=== PATIENT | female | born 1985 | race American Indian/Alaskan Native ===

== ENCOUNTER 2017-02-19 06:05 | Emergency (ER) | payer BC ==
[2017-02-19 06:39] LABS: Bilirubin,Urine NEG (Negative); Blood,Urine LG (Negative); Ketones,Urine NEG (Negative); Leukocyte Esterase,Urine TR (Negative); Mucus,Urine 2+ /HPF; Nitrite,Urine NEG (Negative); Protein,Urine <15 mg/dL mg/dL (Negative)
[2017-02-19 06:49] LABS: Basophils % (Auto) 0.6 % (0.0-1.8); Eosinophils % (Auto) 0.5 % (0.0-4.3); Hematocrit 38.1 % (30.3-42.9); Hemoglobin 12.7 gm/dl (10.1-14.3); Mean Corpuscular HGB Conc 33 % (30-34); Mean Corpuscular Hemoglobin 27 pg (28-32); Mean Corpuscular Volume 82 fl (79-97); Platelet Count 271 K/mm3 (140-440); Red Blood Count 4.68 M/mm3 (3.65-5.03); White Blood Count 11.8 K/mm3 (4.5-11.0)
[2017-02-19 07:10] LABS: Alanine Aminotransferase 15 units/L (7-56); Alkaline Phosphatase 80 units/L (35-129); Anion Gap 22 mmol/L; BUN/Creatinine Ratio 14.28; Blood Urea Nitrogen 10 mg/dL (7-17); Calcium 9.5 mg/dL (8.4-10.2); Carbon Dioxide 22 mmol/L (22-30); Chloride 98.5 mmol/L (98-107); Glucose 105 mg/dL (65-100); Lipase 20 units/L (13-60); Potassium 4.3 mmol/L (3.6-5.0); Sodium 138 mmol/L (137-145); Total Protein 7.9 g/dL (6.3-8.2)
[2017-02-19] MEDS ORDERED: MORPHINE IV ONE (16:06)
[2017-02-19] MEDS ORDERED: NACL 0.9% 1000 ML 1,000 ML IV ONE (16:06)
--- NOTE | 2017-02-19 16:11 | Emergency Department Report ---
ED Abdominal Pain HPI - General Chief Complaint: Abdominal Pain Stated Complaint: ABDOMINAL PAIN Time Seen by Provider: 02/19/17 15:51 Source: patient Mode of arrival: Wheelchair Limitations: No Limitations - History of Present Illness Initial Comments: 32-year-old female here with complaint of abdominal pain. Patient has a history of diverticulitis. Complains of pain in the center of her stomach and left upper quadrant. Describes it as sharp in nature. She had some nausea but no vomiting. Denies fevers chills. Denies any chance of . States she has not had a bowel movement for several days. MD Complaint: abdominal pain -: Sudden Location: LUQ, epigastric Radiation: none Migration to: no migration Severity: severe Quality: cramping, sharp Consistency: constant Improves With: nothing Worsens With: nothing Associated Symptoms: nausea, constipation. denies: vomiting, diarrhea - Related Data Previous Rx's Medication Instructions Recorded Last Taken Type HYDROcodone/APAP 5-325 [Cary 1 each PO Q6HR PRN #10 tablet 02/19/17 Unknown Rx 5-325 mg TAB] Levofloxacin [Levaquin TAB] 500 mg PO QDAY #10 tablet 02/19/17 Unknown Rx metroNIDAZOLE [Flagyl] 500 mg PO Q8HR #30 tablet 02/19/17 Unknown Rx Allergies Allergy/AdvReac Type Severity Reaction Status Date / Time povidone-iodine Allergy Unknown Verified 02/19/17 16:33 [From Betadine] shellfish derived Allergy Rash Verified 02/19/17 06:11 soap [From Betadine] Allergy Unknown Verified 02/19/17 16:33 ED Review of Systems ROS: Stated complaint: ABDOMINAL PAIN Other details as noted in HPI Comment: All other systems reviewed and negative Constitutional: denies: chills, fever Eyes: denies: eye pain, eye discharge, vision change ENT: denies: ear pain, throat pain Respiratory: denies: cough, shortness of breath, wheezing Cardiovascular: denies: chest pain, palpitations Endocrine: no symptoms reported Gastrointestinal: abdominal pain. denies: nausea, diarrhea Genitourinary: denies: urgency, dysuria, discharge Musculoskeletal: denies: back pain, joint swelling, arthralgia Skin: denies: rash, lesions Neurological: denies: headache, weakness, paresthesias Psychiatric: denies: anxiety, depression Hematological/Lymphatic: denies: easy bleeding, easy bruising ED Past Medical Hx - Past Medical History Previous Medical History?: Yes Additional medical history: Diverticulitis. obesity - Surgical History Past Surgical History?: Yes Hx Cholecystectomy: Yes - Family History Family history: no significant - Social History Smoking Status: Never Smoker Substance Use Type: None - Medications Home Medications: Home Medications Medication Instructions Recorded Confirmed Last Taken Type HYDROcodone/APAP 5-325 [[place] 1 each PO Q6HR PRN #10 tablet 02/19/17 Unknown Rx 5-325 mg TAB] Levofloxacin [Levaquin TAB] 500 mg PO QDAY #10 tablet 02/19/17 Unknown Rx metroNIDAZOLE [Flagyl] 500 mg PO Q8HR #30 tablet 02/19/17 Unknown Rx ED Physical Exam - General Limitations: No Limitations General appearance: alert, in no apparent distress - Head Head exam: Present: atraumatic, normocephalic - Eye Eye exam: Present: normal appearance, PERRL, EOMI. Absent: scleral icterus, conjunctival injection - ENT ENT exam: Present: mucous membranes moist - Neck Neck exam: Present: normal inspection - Respiratory Respiratory exam: Present: normal lung sounds bilaterally. Absent: respiratory distress, wheezes, rales, rhonchi - Cardiovascular Cardiovascular Exam: Present: regular rate, normal rhythm. Absent: systolic murmur, diastolic murmur, rubs, gallop - GI/Abdominal GI/Abdominal exam: Present: soft, distended, tenderness, normal bowel sounds. Absent: guarding, rebound - Extremities Exam Extremities exam: Present: normal inspection - Back Exam Back exam: Present: normal inspection - Neurological Exam Neurological exam: Present: alert, oriented X3 - Psychiatric Psychiatric exam: Present: normal affect, normal mood - Skin Skin exam: Present: warm, dry, intact, normal color. Absent: rash ED Course Vital Signs 02/19/17 02/19/17 02/19/17 06:10 16:04 16:12 Temperature 98.3 F 98.5 F Pulse Rate 104 H 75 Respiratory 22 18 18 Rate Blood Pressure 143/102 134/59 O2 Sat by Pulse 100 100 100 Oximetry ED Medical Decision Making - Lab Data Result diagrams: 02/19/17 06:12 02/19/17 06:12 Laboratory Results - last 24 hr 02/19/17 02/19/17 02/19/17 06:12 06:12 06:12 WBC 11.8 H RBC 4.68 Hgb 12.7 Hct 38.1 MCV 82 MCH 27 L MCHC 33 RDW 14.0 Plt Count 271 Lymph % (Auto) 27.5 [place] % (Auto) 7.9 H Eos % (Auto) 0.5 Baso % (Auto) 0.6 Lymph # 3.2 Sabine # 0.9 H Eos # 0.1 Baso # 0.1 Seg Neutrophils % 63.5 Seg Neutrophils # 7.5 Sodium 138 Potassium 4.3 Chloride 98.5 Carbon Dioxide 22 Anion Gap 22 BUN 10 Creatinine 0.7 Estimated GFR > 60 BUN/Creatinine Ratio 14.28 Glucose 105 H Calcium 9.5 Total Bilirubin 0.90 AST 21 ALT 15 Alkaline Phosphatase 80 Total Protein 7.9 Albumin 4.0 Albumin/Globulin Ratio 1.0 Lipase 20 HCG, Qual Negative Urine Color Urine Turbidity Urine pH Ur Specific [place] Urine Protein Urine Glucose (UA) Urine Ketones Urine Blood Urine Nitrite Urine Bilirubin Urine Urobilinogen Ur Leukocyte Esterase Urine WBC (Auto) Urine RBC (Auto) U Epithel Cells (Auto) Urine Mucus 02/19/17 06:29 WBC RBC Hgb Hct MCV MCH MCHC RDW Plt Count Lymph % (Auto) [place] % (Auto) Eos % (Auto) Baso % (Auto) Lymph # [place] # Eos # Baso # Seg Neutrophils % Seg Neutrophils # Sodium Potassium Chloride Carbon Dioxide Anion Gap BUN Creatinine Estimated GFR BUN/Creatinine Ratio Glucose Calcium Total Bilirubin AST ALT Alkaline Phosphatase Total Protein Albumin Albumin/Globulin Ratio Lipase HCG, Qual Urine Color Yellow Urine Turbidity Clear Urine pH 5.0 Ur Specific [place] 1.025 Urine Protein <15 mg/dl Urine Glucose (UA) Neg Urine Ketones Neg Urine Blood Lg Urine Nitrite Neg Urine Bilirubin Neg Urine Urobilinogen 2.0 Ur Leukocyte Esterase Tr Urine WBC (Auto) 4.0 Urine RBC (Auto) 5.0 U Epithel Cells (Auto) 4.0 Urine Mucus 2+ - Medical Decision Making 42-year-old female here with complaint of abdominal pain. Patient has a known history of diverticulitis and hasn't had a bowel movement for several days. She is tender epigastrium and left upper quadrant. Slight patient white blood count of 11.8. Plan CT patient and will reassess after CT scan. Plan to treat with IV fluids and IV morphine. Portions of this chart were dictated with dictation software. There may be dictation errors contained within this note. Critical care attestation.: If time is entered above; I have spent that time in minutes in the direct care of this critically ill patient, excluding procedure time. ED Disposition Clinical Impression: Diverticulitis, Ovarian cyst Disposition: TO HOME OR SELFCARE Is pt being admited?: Yes Condition: Stable Instructions: Abdominal Pain (ED), Ovarian Cyst (ED), Diverticulitis (ED) Additional Instructions: Please follow-up with your drug abuse resistance education officer as soon as possible for a pelvic ultrasound. You need to have your ovaries evaluated. Prescriptions: HYDROcodone/APAP 5-325 [Cary 5-325 mg TAB] 1 each PO Q6HR PRN #10 tablet PRN Reason: Pain Levofloxacin [Levaquin TAB] 500 mg PO QDAY #10 tablet metroNIDAZOLE [Flagyl] 500 mg PO Q8HR #30 tablet Referrals: PRIMARY CARE, [Primary Care Provider] - 3-5 Days
[2017-02-19 16:13] VITALS: BP 134/59
[2017-02-19] MEDS ORDERED: NACL ONE (16:43)
--- NOTE | 2017-02-19 17:43 | Cat Scan Report ---
FINAL REPORT PROCEDURE: CT ABDOMEN PELVIS W CON TECHNIQUE: Computerized axial tomography of the abdomen and pelvis was performed after the IV injection of iodinated nonionic contrast. HISTORY: Abdominal pain. Diverticulitis. DLP 342.10 mGy-cm. COMPARISON: No prior studies are available for comparison. FINDINGS: Visualized lower thorax: No significant abnormality. Liver: Normal size and attenuation. Spleen: 13 millimeter low-attenuation splenic lesion with peripheral nodular enhancement. This appears to partially fill-in on delayed images. Gallbladder and biliary system: Cholecystectomy. Pancreas: Normal. Adrenals: Normal. Kidneys: Normal. GI tract: Normal appendix not confidently seen. Small hiatal hernia. Stool throughout the colon. A few scattered colonic diverticula. There may be minimal stranding changes about a proximal sigmoid diverticulum. Lymph nodes and mesentery: Small mesenteric lymph nodes. Vasculature: Normal. Bladder: Normal. Reproductive organs: Fluid in the endometrial canal. Bilateral low-attenuation ovarian lesions, on the right have more of the appearance of follicles. On the left there is a dominant 4.7 x 3.5 centimeter low-attenuation lesion that is slightly thick-walled. Small linear/nodular subcentimeter areas of high attenuation in the utero cervical region/proximal vagina. In this region there is also a 1.6 6 centimeter area of low attenuation. Peritoneum: Trace amount of free pelvic fluid. Musculoskeletal structures: Small multilevel osteophytes. Other: Small fat filled umbilical hernia. IMPRESSION: Diverticulosis. Although could be volume averaging, subtle stranding changes about the proximal sigmoid diverticulum, cannot exclude subtle diverticulitis. Normal appendix not confidently seen. No obvious inflammatory stranding changes. Consider further evaluation including correlation with surgical history and examination with oral contrast if there is continued clinical concern for appendiceal pathology. Small hiatal hernia. Fluid in the endometrial canal, bilateral low-attenuation ovarian lesions, dominant slightly thick-walled left ovarian lesion. Consider could represent right follicles and complex cyst on the left. Small linear/nodular subcentimeter areas of high attenuation in the uterus cervical regions/proximal vagina. Etiology is uncertain, consider small areas of calcification (appearance does not change between venous and delayed images) or even small clot/hemorrhage. 1.6 centimeter area of low attenuation in this region, consider uterine fibroid or nabothian cysts. Trace pelvic fluid. Recommend pelvic ultrasound to begin further characterization. Low-attenuation splenic lesion with peripheral nodular enhancement which appears to partially fill in on delayed images, likely hemangioma. Small fat filled umbilical hernia. Other incidental findings as above.
[2017-02-19] MEDS ORDERED: LEVAQUIN PO ONE (18:06)
[2017-02-19] MEDS ORDERED: FLAGYL PO ONE (18:06)
== END 2017-02-19 18:45 | disposition home or self-care (01) ==
LOC: ED 06:05
DX: K57.92 Diverticulitis of intestine, part unspecified, without perforation or abscess without bleeding (principal); N83.209 Unspecified ovarian cyst, unspecified side
CPT/HCPCS: 36415; 74177; 80053; 81001; 83690; 84703; 85025; 96361; 96374; 99284; J2270; J7030; Q9967

== ENCOUNTER 2022-02-18 07:51 | Inpatient (IN) | payer BC ==
--- NOTE | 2022-02-18 08:07 | Event Note ---
Date: 02/18/22 Medical screening examination note: 37-year-old female brought to the hospital by emergency medical services with an EMS articulated complaint of nausea, and unsteady gait, patient woke up with symptoms at 8:00 AM yesterday. EMS reports unremarkable vital signs and unremarkable Accu-Chek. Patient anxious, having difficulty walking, and is nauseous and is crying. She is protecting her airway, breathing spontaneously, moving 4 extremities, vital signs unremarkable. Obtain appropriate laboratory studies, EKG, noncontrast CT scan of the brain, treat symptoms supportively and symptomatically, Detailed history and physical to be performed by myself or oncoming ER physician. Vital Signs 02/18/22 02/18/22 07:57 09:43 Temperature 98.0 F Pulse Rate 90 87 Respiratory 16 16 Rate Blood Pressure 130/101 Blood Pressure 128/88 133/107 [Left] O2 Sat by Pulse 97 100 Oximetry
--- NOTE | 2022-02-18 09:11 | Cat Scan Report ---
CT head/brain wo con INDICATION / CLINICAL INFORMATION: 37 years Female; Weakness. TECHNIQUE: Routine CT head without contrast. All CT scans at this location are performed using CT dos e reduction for ALARA by means of automated exposure control. COMPARISON: None. FINDINGS: BRAIN / INTRACRANIAL CONTENTS: No acute hemorrhage, mass effect, midline shift, hydrocephalus, or acu te, large territorial infarct. No signs of significant atrophy or chronic infarct. No significant whi te matter abnormality seen. CRANIOCERVICAL JUNCTION: No significant abnormality. ORBITS: No significant abnormality of visualized orbits. SINUSES / MASTOIDS: Mild mucosal thickening suggested in the mastoids and minimal in the ethmoids. ADDITIONAL FINDINGS: Fibrous union versus old fracture seen along the junction of the posterior arch of C1 on the right in the adjacent lateral mass. Flexion-extension views of the cervical spine may be helpful for further evaluation, if clinically warranted. IMPRESSION: 1. No focal mass, hemorrhage, hydrocephalus, or acute, large territorial infarct. Signer Name: Ariel Merino MD, III Signed: 02/18/2022 9:07 AM Workstation Name: [email or web address]
--- NOTE | 2022-02-18 09:44 | Emergency Department Report ---
ED General Adult HPI - General Chief complaint: Weakness Stated complaint: WEAKNESS Time Seen by Provider: 02/18/22 09:38 Source: patient, EMS (Verbal report received from emergency medical services. EMS documentation not available at time of chart dictation ), RN notes reviewed, old records reviewed Mode of arrival: Stretcher Limitations: Physical Limitation - History of Present Illness Initial comments: The patient was evaluated in the emergency department for symptoms described in the history of present illness. He/she was evaluated in the context of the global COVID-19 pandemic, which necessitated consideration that the patient might be at risk for infection with the virus that causes COVID-19. Institutional protocols and algorithms that pertain to the evaluation of patients at risk for COVID-19 are in a state of rapid change based on i nformation released by regulatory bodies including the CDC and federal and state organizations. These policies and algorithms were followed during the patient's care in the emergency department. Please note that these policies, procedures and recommendations changed on a rapid basis. Patient is a 37-year-old female who is morbidly obese with a history of prediabetes, who presents to the department today with a complaint of headache, unsteady gait, dizziness, and left upper extremity numbness. The left upper extremity numbness started yesterday, and is now resolved. Patient believes that she woke up yesterday at around 8:00 in the morning with the symptoms. No loss of vision, positive left-sided neck pain, no chest pain, no abdominal pain, no shortness of breath, positive nausea, no urinary symptoms. No tinnitus. No loss of hearing. Does report recent chiropractic manipulation, as well as massages. No loss of taste or smell. -: Sudden, days(s) Location: head Quality: aching Consistency: intermittent Improves with: rest Worsens with: movement - Related Data Previous Rx's Medication Instructions Recorded Last Taken Type HYDROcodone/APAP 5-325 [[place] 1 each PO Q6HR PRN #10 tablet 02/19/17 Unknown Rx 5-325 mg TAB] levoFLOXacin [Levaquin TAB] 500 mg PO QDAY #10 tablet 02/19/17 Unknown Rx metroNIDAZOLE [Flagyl] 500 mg PO Q8HR #30 tablet 02/19/17 Unknown Rx Allergies Allergy/AdvReac Type Severity Reaction Status Date / Time povidone-iodine Allergy Unknown Verified 02/18/22 11:15 [From Betadine] shellfish derived Allergy Rash Verified 02/18/22 11:15 soap [From Betadine] Allergy Unknown Verified 02/18/22 11:15 ED Review of Systems ROS: Stated complaint: WEAKNESS Other details as noted in HPI Constitutional: malaise, weakness. denies: fever Eyes: denies: eye discharge, vision change ENT: denies: throat pain Respiratory: denies: cough Cardiovascular: denies: chest pain Gastrointestinal: nausea, vomiting. denies: abdominal pain, diarrhea Genitourinary: denies: dysuria Musculoskeletal: arthralgia, myalgia Neurological: headache, numbness, abnormal gait, vertigo. denies: weakness, paresthesias, confusion Psychiatric: anxiety Hematological/Lymphatic: denies: easy bleeding ED Past Medical Hx - Past Medical History Previous Medical History?: Yes Hx Diabetes: Yes Additional medical history: Diverticulitis, migraine. obesity - Surgical History Hx Cholecystectomy: Yes - Social History Smoking Status: Never Smoker Substance Use Type: None - Medications Home Medications: Home Medications Medication Instructions Recorded Confirmed Last Taken Type HYDROcodone/APAP 5-325 [[place] 1 each PO Q6HR PRN #10 tablet 02/19/17 Unknown Rx 5-325 mg TAB] levoFLOXacin [Levaquin TAB] 500 mg PO QDAY #10 tablet 02/19/17 Unknown Rx metroNIDAZOLE [Flagyl] 500 mg PO Q8HR #30 tablet 02/19/17 Unknown Rx ED Physical Exam - General Limitations: Physical Limitation General appearance: alert, anxious, in distress, obese - Head Head exam: Present: atraumatic, normocephalic - Eye Eye exam: Present: normal appearance, PERRL, EOMI, other (Visual acuity is intact to finger counting and color perception at a close distance). Absent: nystagmus - ENT ENT exam: Present: normal exam, normal orophraynx, mucous membranes moist, normal external ear exam - Neck Neck exam: Present: normal inspection, full ROM. Absent: tenderness, meningismus - Respiratory Respiratory exam: Present: normal lung sounds bilaterally. Absent: respiratory distress, wheezes, rales, rhonchi, stridor, decreased breath sounds - Cardiovascular Cardiovascular Exam: Present: regular rate, normal rhythm, normal heart sounds. Absent: bradycardia, tachycardia, irregular rhythm, systolic murmur, diastolic murmur, rubs, gallop - GI/Abdominal GI/Abdominal exam: Present: soft. Absent: distended, tenderness, guarding, rebound, rigid, pulsatile mass - Extremities Exam Extremities exam: Present: normal inspection, full ROM, other (2+ pulses noted in the bilateral upper and lower extremities. There is no palpable cord. negative Homans sign. Muscular compartments are soft. The pelvis is stable.). Absent: pedal edema, calf tenderness - Back Exam Back exam: Present: normal inspection. Absent: tenderness, CVA tenderness (R), CVA tenderness (L), paraspinal tenderness, vertebral tenderness - Neurological Exam Neurological exam: Present: alert (There is no past-pointing. There is normal [id number]. There is no pronator drift.), oriented X3, other (There is no facial droop. The tongue is midline. EOMI. 5 out of 5 strength in 4 extremities. Sensation is intact to light touch in the bilateral upper and lower extremities. Sensation intact to light touch in V1, V2, V3 distribution bilaterally). Absent: motor sensory deficit - Psychiatric Psychiatric exam: Present: anxious - Skin Skin exam: Present: warm, dry, intact, normal color. Absent: rash ED Course Vital Signs 02/18/22 02/18/22 07:57 09:43 Temperature 98.0 F Pulse Rate 90 87 Respiratory 16 16 Rate Blood Pressure 130/101 Blood Pressure 128/88 133/107 [Left] O2 Sat by Pulse 97 100 Oximetry - Reevaluation(s) Reevaluation #1: 02/18/22 11:51 Differential diagnosis, including but not limited to: Migraine headache, tension headache, cluster headache, subacute stroke, peripheral vertigo, central vert igo Assessment and plan: 37-year-old female who woke up with symptoms yesterday morning, with a complaint of nausea, vomiting, unsteady gait, and left upper extremity numbness. She is clinically sober, currently with a GCS of 15. She is not a tPA candidate, because she woke up with symptoms yesterday, and is now 4.5 hours after her last known well time. I have not obtained an emergent neurologic consultation, because I do not have a clinical question for neurology that requires emergent answer. The patient is not a tPA candidate given the aforementioned facts. The patient is not an endov ascular candidate, given the aforementioned facts. Patient obviously requires an MRI, and further inpatient work-up. This is unlikely to be a large vessel occlusion. Given history of chiropractic manipulation, obtain CT angiogram head and neck. Laboratory studies thus far unremarkable. We will treat the patient supportively and symptomatically. Have recommended admission to the medical service. Patient is agreeable to admission hospitalization. Hospital physician, Dr. Campos, to assume care. 02/18/22 13:43 CT angiogram head and neck negative for acute findings 02/18/22 13:44 ED Medical Decision Making - Lab Data Result diagrams: 02/18/22 08:16 02/18/22 08:16 Vital Signs 02/18/22 02/18/22 07:57 09:43 Temperature 98.0 F Pulse Rate 90 87 Respiratory 16 16 Rate Blood Pressure 130/101 Blood Pressure 128/88 133/107 [Left] O2 Sat by Pulse 97 100 Oximetry Lab Results 02/18/22 02/18/22 02/18/22 Range/Units 08:16 08:16 08:16 WBC 9.2 (4.5-11.0) K/mm3 RBC 5.04 H (3.65-5.03) M/mm3 Hgb 13.2 (10.1-14.3) gm/dl Hct 41.9 (30.3-42.9) % MCV 83 (79-97) fl MCH 26 L (28-32) pg MCHC 32 (30-34) % RDW 14.4 (13.2-15.2) % Plt Count 383 (140-440) K/mm3 Lymph % (Auto) 17.9 (13.4-35.0) % Mcdonald % (Auto) 6.1 (0.0-7.3) % Eos % (Auto) 1.1 (0.0-4.3) % Baso % (Auto) 0.4 (0.0-1.8) % Lymph # (Auto) 1.6 (1.2-5.4) K/mm3 Mcdonald # (Auto) 0.6 (0.0-0.8) K/mm3 Eos # (Auto) 0.1 (0.0-0.4) K/mm3 Baso # (Auto) 0.0 (0.0-0.1) K/mm3 Seg Neutrophils % 74.5 H (40.0-70.0) % Seg Neutrophils # 6.9 (1.8-7.7) K/mm3 PT 13.4 (12.2-14.9) Sec. INR 0.92 (0.87-1.13) Sodium 139 (137-145) mmol/L Potassium 4.4 (3.6-5.0) mmol/L Chloride 104.3 (98-107) mmol/L Carbon Dioxide 25 (22-30) mmol/L Anion Gap 14 mmol/L BUN 11 (7-17) mg/dL Creatinine 0.9 (0.6-1.2) mg/dL Estimated GFR > 60 ml/min BUN/Creatinine Ratio 12 % Glucose 98 (65-100) mg/dL Calcium 10.1 (8.4-10.2) mg/dL Phosphorus (2.5-4.5) mg/dL Magnesium (1.7-2.3) mg/dL Total Bilirubin 0.70 (0.1-1.2) mg/dL AST 28 (5-40) units/L ALT 24 (7-56) units/L Alkaline Phosphatase 86 (35-129) units/L Total Creatine Kinase (30-135) units/L Troponin T < 0.010 (0.00-0.029) ng/mL Total Protein 7.6 (6.3-8.2) g/dL Albumin 4.7 (3.9-5) g/dL Albumin/Globulin Ratio 1.6 % TSH (0.270-4.200) mlU/mL HCG, Quant (0-4) mIU/mL Salicylates (2.8-20.0) mg/dL Acetaminophen (10.0-30.0) ug/mL Plasma/Serum Alcohol (0-0.07) % 02/18/22 02/18/22 02/18/22 Range/Units 08:16 08:16 08:16 WBC (4.5-11.0) K/mm3 RBC (3.65-5.03) M/mm3 Hgb (10.1-14.3) gm/dl Hct (30.3-42.9) % MCV (79-97) fl MCH (28-32) pg MCHC (30-34) % RDW (13.2-15.2) % Plt Count (140-440) K/mm3 Lymph % (Auto) (13.4-35.0) % Mcdonald % (Auto) (0.0-7.3) % Eos % (Auto) (0.0-4.3) % Baso % (Auto) (0.0-1.8) % Lymph # (Auto) (1.2-5.4) K/mm3 Mcdonald # (Auto) (0.0-0.8) K/mm3 Eos # (Auto) (0.0-0.4) K/mm3 Baso # (Auto) (0.0-0.1) K/mm3 Seg Neutrophils % (40.0-70.0) % Seg Neutrophils # (1.8-7.7) K/mm3 PT (12.2-14.9) Sec. INR (0.87-1.13) Sodium (137-145) mmol/L Potassium (3.6-5.0) mmol/L Chloride (98-107) mmol/L Carbon Dioxide (22-30) mmol/L Anion Gap mmol/L BUN (7-17) mg/dL Creatinine (0.6-1.2) mg/dL Estimated GFR ml/min BUN/Creatinine Ratio % Glucose (65-100) mg/dL Calcium (8.4-10.2) mg/dL Phosphorus 3.60 (2.5-4.5) mg/dL Magnesium 2.10 (1.7-2.3) mg/dL Total Bilirubin (0.1-1.2) mg/dL AST (5-40) units/L ALT (7-56) units/L Alkaline Phosphatase (35-129) units/L Total Creatine Kinase 118 (30-135) units/L Troponin T (0.00-0.029) ng/mL Total Protein (6.3-8.2) g/dL Albumin (3.9-5) g/dL Albumin/Globulin Ratio % TSH 0.961 (0.270-4.200) mlU/mL HCG, Quant < 2 (0-4) mIU/mL Salicylates (2.8-20.0) mg/dL Acetaminophen (10.0-30.0) ug/mL Plasma/Serum Alcohol (0-0.07) % 02/18/22 02/18/22 02/18/22 Range/Units 08:16 08:16 08:16 WBC (4.5-11.0) K/mm3 RBC (3.65-5.03) M/mm3 Hgb (10.1-14.3) gm/dl Hct (30.3-42.9) % MCV (79-97) fl MCH (28-32) pg MCHC (30-34) % RDW (13.2-15.2) % Plt Count (140-440) K/mm3 Lymph % (Auto) (13.4-35.0) % Mcdonald % (Auto) (0.0-7.3) % Eos % (Auto) (0.0-4.3) % Baso % (Auto) (0.0-1.8) % Lymph # (Auto) (1.2-5.4) K/mm3 Mcdonald # (Auto) (0.0-0.8) K/mm3 Eos # (Auto) (0.0-0.4) K/mm3 Baso # (Auto) (0.0-0.1) K/mm3 Seg Neutrophils % (40.0-70.0) % Seg Neutrophils # (1.8-7.7) K/mm3 PT (12.2-14.9) Sec. INR (0.87-1.13) Sodium (137-145) mmol/L Potassium (3.6-5.0) mmol/L Chloride (98-107) mmol/L Carbon Dioxide (22-30) mmol/L Anion Gap mmol/L BUN (7-17) mg/dL Creatinine (0.6-1.2) mg/dL Estimated GFR ml/min BUN/Creatinine Ratio % Glucose (65-100) mg/dL Calcium (8.4-10.2) mg/dL Phosphorus (2.5-4.5) mg/dL Magnesium (1.7-2.3) mg/dL Total Bilirubin (0.1-1.2) mg/dL AST (5-40) units/L ALT (7-56) units/L Alkaline Phosphatase (35-129) units/L Total Creatine Kinase (30-135) units/L Troponin T (0.00-0.029) ng/mL Total Protein (6.3-8.2) g/dL Albumin (3.9-5) g/dL Albumin/Globulin Ratio % TSH (0.270-4.200) mlU/mL HCG, Quant (0-4) mIU/mL Salicylates < 0.3 L (2.8-20.0) mg/dL Acetaminophen 5.0 L (10.0-30.0) ug/mL Plasma/Serum Alcohol < 0.01 (0-0.07) % - EKG Data -: EKG Interpreted by Ok EKG shows normal: sinus rhythm Rate: normal - EKG Data 02/18/22 11:47 The EKG is interpreted at 08: 4 0 Sinus rhythm, 86 bpm. There is a normal axis, there is a normal P wave axis, QTC is 4 6 9 ms, and there is high left ventricular voltage. This is an abnormal EKG. This is not a STEMI - Radiology Data Radiology results: pending, report reviewed, image reviewed CT head/brain wo con INDICATION / CLINICAL INFORMATION: 37 years Female; Weakness. TECHNIQUE: Routine CT head without contrast. All CT scans at this location are performed using CT dose reduction for ALARA by means of automated exposure control. COMPARISON: None. FINDINGS: BRAIN / INTRACRANIAL CONTENTS: No acute hemorrhage, mass effect, midline shift, hydrocephalus, or acute, large territorial infarct. No signs of significant atrophy or chronic infarct. No significant white matter abnormality seen. CRANIOCERVICAL JUNCTION: No significant abnormality. ORBITS: No significant abnormality of visualized orbits. SINUSES / MASTOIDS: Mild mucosal thickening suggested in the mastoids and minimal in the ethmoids. ADDITIONAL FINDINGS: Fibrous union versus old fracture seen along the junction of the posterior arch of C1 on the right in the adjacent lateral mass. Flexion-extension views of the cervical spine may be helpful for further evaluation, if clinically warranted. IMPRESSION: 1. No focal mass, hemorrhage, hydrocephalus, or acute, large territorial infarct. Signer Name: Ariel Merino MD, III Signed: 02/18/2022 8:07 AM Workstation Name: [email or web address] CT angio head INDICATION / CLINICAL INFORMATION: 37 years Female; Dizziness, left arm numbness. TECHNIQUE: Thin cut axial images obtained through the head during IV bolus contrast administration. Sagittal, coronal, and 3 plane MIP reconstructions performed by the technologist. NASCET type criteria used evaluate stenoses. Automated exposure control utilized for radiation reduction purposes. . COMPARISON: None available. FINDINGS: INTERNAL CAROTID ARTERIES: No significant narrowing appreciated. VERTEBROBASILAR SYSTEM: No significant narrowing appreciated. DISTAL BRANCHES: Distal branches of the anterior, middle, and posterior cerebral arteries are fairly symmetric in appearance and number. ANEURYSM: None identified. ADDITIONAL FINDINGS: Remainder of the surrounding soft tissues are grossly normal. IMPRESSION: 1. No significant narrowing appreciated on this CTA of the head. Signer Name: Ariel Merino MD, III Signed: 02/18/2022 11:50 AM Workstation Name: [id number] CT angio neck HISTORY: Dizziness, left arm numbness COMPARISON: None. TECHNIQUE: Routine CTA of the neck is performed. 3-D/MIP reformats were postprocessed. Percentage stenosis is determined by direct quantitative measurements of diseased internal carotid artery diameter compared with normal distal internal carotid artery reference segments or by criteria similar to NASCET where applicable. All CT scans at this location are performed using CT dose reduction for ALARA by means of automated exposure control. FINDINGS: Aortic arch: No significant abnormality. Cervical vertebral arteries: No occlusion or hemodynamically significant stenosis. Common Carotid arteries: No occlusion or hemodynamically significant stenosis. Internal carotid arteries: No occlusion or hemodynamically significant stenosis. Additional findings: None. IMPRESSION: 1. No occlusion or significant stenosis. Signer Name: Chuy Barksdale MD Signed: 02/18/2022 12:02 PM Workstation Name: [id number] Critical care attestation.: If time is entered above; I have spent that time in minutes in the direct care of this critically ill patient, excluding procedure time. ED Disposition Clinical Impression: TIA (transient ischemic attack), Dizziness Disposition: 09 ADMITTED INPATIENT Is pt being admited?: Yes Does the pt Need Aspirin: Yes Condition: Good
[2022-02-18 09:45] LABS: Alanine Aminotransferase 24 units/L (7-56); Albumin 4.7 g/dL (3.9-5); BUN/Creatinine Ratio 12; Blood Urea Nitrogen 11 mg/dL (7-17); Calcium 10.1 mg/dL (8.4-10.2); Hemolysis Index 3
[2022-02-18] MEDS ORDERED: SODIUM CHLORIDE 0.9% 500 ML 500 ML IV ONE (09:55)
[2022-02-18] MEDS ORDERED: diphenhydrAMINE 50 MG/ML VIAL IV ONE (09:55)
[2022-02-18] MEDS ORDERED: METOCLOPRAMIDE 10 MG/2 ML INJ IV ONE (09:55)
[2022-02-18 10:08] LABS: Basophils % (Auto) 0.4 % (0.0-1.8); Eosinophils # (Auto) 0.1 K/mm3 (0.0-0.4); Eosinophils % (Auto) 1.1 % (0.0-4.3); Hematocrit 41.9 % (30.3-42.9); Hemoglobin 13.2 gm/dl (10.1-14.3); Lymphocytes # (Auto) 1.6 K/mm3 (1.2-5.4); Lymphocytes % (Auto) 17.9 % (13.4-35.0); Mean Corpuscular HGB Conc 32 % (30-34); Mean Corpuscular Volume 83 fl (79-97); Monocytes # (Auto) 0.6 K/mm3 (0.0-0.8); Monocytes % (Auto) 6.1 % (0.0-7.3); Platelet Count 383 K/mm3 (140-440); Red Blood Count 5.04 M/mm3 (3.65-5.03); Red Cell Distribution Width 14.4 % (13.2-15.2)
[2022-02-18 10:54] LABS: INR 0.92 (0.87-1.13)
[2022-02-18] MEDS ORDERED: HYDROmorphone 0.5 MG/0.5 ML INJ IV PRN (11:10)
[2022-02-18] MEDS ORDERED: ACETAMINOPHEN 325 MG TAB PO PRN (11:10)
[2022-02-18] MEDS ORDERED: ONDANSETRON 4 MG/2 ML INJ IV PRN (11:10)
[2022-02-18] MEDS ORDERED: ALBUTEROL 2.5 MG/3 ML NEBU IH PRN (11:10)
--- NOTE | 2022-02-18 11:10 | History and Physical Report ---
History of Present Illness Chief complaint: My head hurts, the room is spinning and I do not know where I am. History of present illness: 37 YO Female with Obesity, DM, Migraine GILLIS presents to ED for evaluation. Patient is confused with diminished cognition and provides minimal history. Patient reports "I am confused in the room is spinning". Additional patient history is provided by the patient's aunt who is at bedside during exam and interview. As per the patient the patient complained of dizziness and headache and weakness this morning and subsequently lost consciousness. EMS was notified and upon arrival the patient was found to be in distress and subsequent transported to [facility] for further care and evaluation of the aforementioned symptoms. The patient was seen and evaluated emergency department. All lab and imaging studies reviewed. Patient found to have acute encephalopathy, benign positional vertigo, as well as syncope. Patient admitted to medical floor due to increased risk of worsening symptoms and for medical stabilization. No reports of fever, chills, chest pain, palpitation, productive cough, skin rash, recent contact, known exposure to COVID-19. No prior admission for review. No medication listed at time of admission for reconciliation. Advanced care planning conducted in ED. Past History Past Medical History: hypertension, other (See HPI) Past Surgical History: cholecystectomy Social history: single. denies: smoking, alcohol abuse, prescription drug abuse Family history: diabetes, hypertension Medications and Allergies Allergies Allergy/AdvReac Type Severity Reaction Status Date / Time povidone-iodine Allergy Unknown Verified 02/18/22 11:15 [From Betadine] shellfish derived Allergy Rash Verified 02/18/22 11:15 soap [From Betadine] Allergy Unknown Verified 02/18/22 11:15 Home Medications Medication Instructions Recorded Confirmed Last Taken Type HYDROcodone/APAP 5-325 [[place] 1 each PO Q6HR PRN #10 tablet 02/19/17 Unknown Rx 5-325 mg TAB] levoFLOXacin [Levaquin TAB] 500 mg PO QDAY #10 tablet 02/19/17 Unknown Rx metroNIDAZOLE [Flagyl] 500 mg PO Q8HR #30 tablet 02/19/17 Unknown Rx Review of Systems Constitutional: weakness, malaise, no weight loss, no weight gain, no fever, no chills Ears, nose, mouth and throat: no ear pain, no ear discharge, no tinnitis, no d ecreased hearing, no nose pain, no nasal congestion Breasts: no change in shape, no swelling, no mass Cardiovascular: syncope, no chest pain, no orthopnea, no palpitations, no rapid/irregular heart beat, no edema Respiratory: no cough, no cough with sputum, no excessive sputum, no hemoptysis Gastrointestinal: no abdominal pain, no nausea, no vomiting, no diarrhea Genitourinary Female: no pelvic pain, no flank pain, no dysuria, no urinary frequency, no urgency Rectal: no pain, no incontinence, no bleeding Musculoskeletal: no neck stiffness, no shooting arm pain, no shooting leg pain Integumentary: no rash, no pruritis, no redness, no sores Neurological: syncope, vertigo, no head injury Psychiatric: no anxiety, no memory loss, no change in sleep habits, no sleep disturbances, no hypersomnia, no change in appetite Endocrine: no cold intolerance, no heat intolerance, no polyphagia, no polydipsia, no polyuria Hematologic/Lymphatic: no easy bruising, no easy bleeding Allergic/Immunologic: no urticaria Exam - Constitutional Vitals: Temp Pulse Resp BP Pulse Ox 98.0 F 87 16 133/107 100 02/18/22 09:43 02/18/22 09:43 02/18/22 09:43 02/18/22 09:43 02/18/22 09:43 General appearance: Present: mild distress, obese - EENT Eyes: Present: PERRL ENT: hearing intact, clear oral mucosa - Neck Neck: Present: supple, normal ROM - Respiratory Respiratory effort: normal Respiratory: bilateral: CTA - Cardiovascular Heart Sounds: Present: S1 & S2. Absent: rub, click - Extremities Extremities: pulses symmetrical, No edema Peripheral Pulses: within normal limits - Abdominal General gastrointestinal: Present: soft, non-tender, non-distended, normal bowel sounds Female genitourinary: Present: normal - Integumentary Integumentary: Present: clear, warm, dry - Musculoskeletal Musculoskeletal: gait normal, strength equal bilaterally - Psychiatric Psychiatric: appropriate mood/affect, intact judgment & insight - Neurologic Neurologic: CNII-XII intact, moves all extremities HEART Score - HEART Score Troponin: Troponin T < 0.010 ng/mL (0.00-0.029) 02/18/22 08:16 Results - Labs CBC & Chem 7: 02/18/22 08:16 02/18/22 08:16 Labs: Abnormal lab results 02/18/22 02/18/22 02/18/22 Range/Units 08:16 08:16 08:16 RBC 5.04 H (3.65-5.03) M/mm3 MCH 26 L (28-32) pg Seg Neutrophils % 74.5 H (40.0-70.0) % Salicylates < 0.3 L (2.8-20.0) mg/dL Acetaminophen 5.0 L (10.0-30.0) ug/mL Assessment and Plan - Patient Problems (1) Encephalopathy acute Current Visit: Yes Status: Acute Plan to address problem: CT scan head, neuro check, seizure precautions, aspiration precaution, fall precautions, BMP, supportive care. IV fluid resuscitation therapy. (2) Vertigo Current Visit: Yes Status: Acute Plan to address problem: CT scan head, CTA head, CTA neck, supportive care, physical therapy consulted, vestibular rehab. (3) Meniere's disease Current Visit: Yes Status: Acute Plan to address problem: Supportive care, meclizine, vestibular rehab, (4) Obesity hypoventilation syndrome Current Visit: Yes Status: Acute Plan to address problem: Balanced diet, increase physical activity discharge, outpatient pulmonary follow-up for sleep study. (5) DVT prophylaxis Current Visit: Yes Status: Acute Plan to address problem: SCD to bilateral lower extremities while in bed (6) Advance care planning Current Visit: Yes Status: Acute Plan to address problem: Disease education done, care plan discussed, diagnoses discussed, prognosis discussed, patient is full code. Patient acknowledges understanding and agreement with care plan, +30 minutes. (7) Preventative health care Current Visit: Yes Status: Acute Plan to address problem: Patient counseled regarding balanced diet, weight reduction, risk factor reduction, increase physical activity discharge, +30 minutes.
[2022-02-18] MEDS ORDERED: MECLIZINE 25 MG TAB PO ONE (11:53)
[2022-02-18] MEDS ORDERED: ASPIRIN 81 MG TAB CHEW PO ONE (11:54)
[2022-02-18] MEDS ORDERED: FAMOTIDINE 20 MG/2 ML INJ IV ONE (11:59)
[2022-02-18] MEDS ORDERED: methylPREDNISolone Sod Succinate 125 MG/2 ML INJ IV ONE (11:59)
--- NOTE | 2022-02-18 12:54 | Cat Scan Report ---
CT angio head INDICATION / CLINICAL INFORMATION: 37 years Female; Dizziness, left arm numbness. TECHNIQUE: Thin cut axial images obtained through the head during IV bolus contrast administration. S agittal, coronal, and 3 plane MIP reconstructions performed by the technologist. NASCET type criteria used evaluate stenoses. Automated exposure control utilized for radiation reduction purposes. . COMPARISON: None available. FINDINGS: INTERNAL CAROTID ARTERIES: No significant narrowing appreciated. VERTEBROBASILAR SYSTEM: No significant narrowing appreciated. DISTAL BRANCHES: Distal branches of the anterior, middle, and posterior cerebral arteries are fairly symmetric in appearance and number. ANEURYSM: None identified. ADDITIONAL FINDINGS: Remainder of the surrounding soft tissues are grossly normal. IMPRESSION: 1. No significant narrowing appreciated on this CTA of the head. Signer Name: Ariel Merino MD, III Signed: 02/18/2022 12:50 PM Workstation Name: [id number]
--- NOTE | 2022-02-18 13:06 | Cat Scan Report ---
CT angio neck HISTORY: Dizziness, left arm numbness COMPARISON: None. TECHNIQUE: Routine CTA of the neck is performed. 3-D/MIP reformats were postprocessed. Percentage st enosis is determined by direct quantitative measurements of diseased internal carotid artery diameter compared with normal distal internal carotid artery reference segments or by criteria similar to NATALIYA CET where applicable. All CT scans at this location are performed using CT dose reduction for ALARA b y means of automated exposure control. FINDINGS: Aortic arch: No significant abnormality. Cervical vertebral arteries: No occlusion or hemodynamically significant stenosis. Common Carotid arteries: No occlusion or hemodynamically significant stenosis. Internal carotid arteries: No occlusion or hemodynamically significant stenosis. Additional findings: None. IMPRESSION: 1. No occlusion or significant stenosis. Signer Name: Chuy Barksdale MD Signed: 02/18/2022 1:02 PM Workstation Name: [id number]
[2022-02-18] MEDS: oxyCODONE /ACETAMINOPHEN 5-325MG TAB PO PRN (22:00)
[2022-02-18] MEDS: SODIUM CHLORIDE 0.9% 1000 ML 1,000 ML IV SCH (23:24)
[2022-02-19] MEDS: oxyCODONE /ACETAMINOPHEN 5-325MG TAB PO PRN (09:18)
[2022-02-19] MEDS: SODIUM CHLORIDE 0.9% 1000 ML 1,000 ML IV SCH ×2 (09:19→18:13)
--- NOTE | 2022-02-19 13:11 | Electrocardiograph Report ---
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
--- NOTE | 2022-02-19 16:43 | Progress Note ---
Assessment and Plan - Patient Problems (1) Encephalopathy acute Current Visit: Yes Status: Acute Plan to address problem: CT scan head, neuro check, seizure precautions, aspiration precaution, fall precautions, BMP, supportive care. IV fluid resuscitation therapy. (2) Vertigo Current Visit: Yes Status: Acute Plan to address problem: CT scan head, CTA head, CTA neck, supportive care, physical therapy consulted, vestibular rehab. (3) Meniere's disease Current Visit: Yes Status: Acute Plan to address problem: Supportive care, meclizine, vestibular rehab, (4) Obesity hypoventilation syndrome Current Visit: Yes Status: Acute Plan to address problem: Balanced diet, increase physical activity discharge, outpatient pulmonary follow-up for sleep study. (5) DVT prophylaxis Current Visit: Yes Status: Acute Plan to address problem: SCD to bilateral lower extremities while in bed (6) Advance care planning Current Visit: Yes Status: Acute Plan to address problem: Disease education done, care plan discussed, diagnoses discussed, prognosis discussed, patient is full code. Patient acknowledges understanding and agreement with care plan, +30 minutes. (7) Preventative health care Current Visit: Yes Status: Acute Plan to address problem: Patient counseled regarding balanced diet, weight reduction, risk factor reduction, increase physical activity discharge, +30 minutes. History Interval history: 37 YO Female HD #2 with Meniere's Disease. Patient reports continued episodes of dizziness and difficulty with ambulation today. Patient states she still feels like room is spinning at times. Patient denies pain. No reported nursing events. Hospitalist Physical - Constitutional Vitals: Temp Pulse Resp BP Pulse Ox 98.5 F 87 16 123/61 98 02/19/22 05:05 02/19/22 05:05 02/19/22 05:05 02/19/22 05:05 02/19/22 11:24 General appearance: Present: mild distress, obese - EENT Eyes: Present: PERRL ENT: hearing intact - Neck Neck: Present: supple - Respiratory Respiratory effort: normal Respiratory: bilateral: CTA - Cardiovascular Rhythm: regular Heart Sounds: Present: S1 & S2 - Extremities Extremities: no ischemia Peripheral Pulses: within normal limits - Abdominal General gastrointestinal: soft, non-tender, non-distended - Integumentary Integumentary: Present: clear, dry - Psychiatric Psychiatric: cooperative - Neurologic Neurologic: CNII-XII intact HEART Score - HEART Score Troponin: Troponin T < 0.010 ng/mL (0.00-0.029) 02/18/22 08:16 Results - Labs CBC & Chem 7: 02/18/22 08:16 02/18/22 08:16 Labs: Laboratory Last Values WBC 9.2 K/mm3 (4.5-11.0) 02/18/22 08:16 RBC 5.04 M/mm3 (3.65-5.03) H 02/18/22 08:16 Hgb 13.2 gm/dl (10.1-14.3) 02/18/22 08:16 Hct 41.9 % (30.3-42.9) 02/18/22 08:16 MCV 83 fl (79-97) 02/18/22 08:16 MCH 26 pg (28-32) L 02/18/22 08:16 MCHC 32 % (30-34) 02/18/22 08:16 RDW 14.4 % (13.2-15.2) 02/18/22 08:16 Plt Count 383 K/mm3 (140-440) 02/18/22 08:16 Lymph % (Auto) 17.9 % (13.4-35.0) 02/18/22 08:16 Letcher % (Auto) 6.1 % (0.0-7.3) 02/18/22 08:16 Eos % (Auto) 1.1 % (0.0-4.3) 02/18/22 08:16 Baso % (Auto) 0.4 % (0.0-1.8) 02/18/22 08:16 Lymph # (Auto) 1.6 K/mm3 (1.2-5.4) 02/18/22 08:16 Letcher # (Auto) 0.6 K/mm3 (0.0-0.8) 02/18/22 08:16 Eos # (Auto) 0.1 K/mm3 (0.0-0.4) 02/18/22 08:16 Baso # (Auto) 0.0 K/mm3 (0.0-0.1) 02/18/22 08:16 Seg Neutrophils % 74.5 % (40.0-70.0) H 02/18/22 08:16 Seg Neutrophils # 6.9 K/mm3 (1.8-7.7) 02/18/22 08:16 PT 13.4 Sec. (12.2-14.9) 02/18/22 08:16 INR 0.92 (0.87-1.13) 02/18/22 08:16 Sodium 139 mmol/L (137-145) 02/18/22 08:16 Potassium 4.4 mmol/L (3.6-5.0) 02/18/22 08:16 Chloride 104.3 mmol/L (98-107) 02/18/22 08:16 Carbon Dioxide 25 mmol/L (22-30) 02/18/22 08:16 Anion Gap 14 mmol/L 02/18/22 08:16 BUN 11 mg/dL (7-17) 02/18/22 08:16 Creatinine 0.9 mg/dL (0.6-1.2) 02/18/22 08:16 Estimated GFR > 60 ml/min 02/18/22 08:16 BUN/Creatinine Ratio 12 % 02/18/22 08:16 Glucose 98 mg/dL (65-100) 02/18/22 08:16 Calcium 10.1 mg/dL (8.4-10.2) 02/18/22 08:16 Phosphorus 3.60 mg/dL (2.5-4.5) 02/18/22 08:16 Magnesium 2.10 mg/dL (1.7-2.3) 02/18/22 08:16 Total Bilirubin 0.70 mg/dL (0.1-1.2) 02/18/22 08:16 AST 28 units/L (5-40) 02/18/22 08:16 ALT 24 units/L (7-56) 02/18/22 08:16 Alkaline Phosphatase 86 units/L (35-129) 02/18/22 08:16 Total Creatine Kinase 118 units/L (30-135) 02/18/22 08:16 Troponin T < 0.010 ng/mL (0.00-0.029) 02/18/22 08:16 Total Protein 7.6 g/dL (6.3-8.2) 02/18/22 08:16 Albumin 4.7 g/dL (3.9-5) 02/18/22 08:16 Albumin/Globulin Ratio 1.6 % 02/18/22 08:16 TSH 0.961 mlU/mL (0.270-4.200) 02/18/22 08:16 HCG, Quant < 2 mIU/mL (0-4) 02/18/22 08:16 Salicylates < 0.3 mg/dL (2.8-20.0) L 02/18/22 08:16 Acetaminophen 5.0 ug/mL (10.0-30.0) L 02/18/22 08:16 Plasma/Serum Alcohol < 0.01 % (0-0.07) 02/18/22 08:16 Cortes/IV: Voiding Method Toilet Active Medications - Current Medications Current Medications: Generic Name Dose Route Start Last Admin Trade Name Freq PRN Reason Stop Dose Admin Acetaminophen 650 mg 02/18/22 11:10 Acetaminophen 325 Mg Tab PO Q4H PRN Pain MILD(1-3)/Fever >100.5/GILLIS Albuterol 2.5 mg 02/18/22 11:10 Albuterol 2.5 Mg/3 Ml Nebu IH Q4HRT PRN Shortness Of Breath Hydromorphone HCl 0.5 mg 02/18/22 11:10 02/18/22 19:13 Hydromorphone 0.5 Mg/0.5 Ml Inj IV 0.5 mg Q23H PRN Administration Pain , Severe (7-10) Sodium Chloride 1,000 mls @ 100 mls/hr 02/18/22 11:15 02/19/22 09:19 Nacl 0.9% 1000 Ml IV 100 mls/hr DIRECT ANA Administration Ondansetron HCl 4 mg 02/18/22 11:10 Ondansetron 4 Mg/2 Ml Inj IV Q8H PRN Nausea And Vomiting Oxycodone/Acetaminophen 1 tab 02/18/22 11:10 02/19/22 09:18 Oxycodone /Acetaminophen 5-325mg Tab PO 1 tab Q16H PRN Administration Pain, Moderate (4-6) Sodium Chloride 10 ml 02/18/22 22:00 02/19/22 09:03 Sodium Chloride 0.9% 10 Ml Flush Syringe IV 10 ml BID ANA Administration Sodium Chloride 10 ml 02/18/22 11:10 Sodium Chloride 0.9% 10 Ml Flush Syringe IV PRN PRN LINE FLUSH
[2022-02-19] MEDS: MECLIZINE 25 MG TAB PO SCH (18:09)
[2022-02-20] MEDS: MECLIZINE 25 MG TAB PO SCH ×3 (01:50→16:37)
[2022-02-20 13:59] VITALS: BP 116/67
== END 2022-02-20 17:25 | disposition home or self-care (01) | DRG 71 ==
LOC: ED 07:51 → 3A 11:10
PROVIDERS: ADMIT Internal Medicine; ATTEND Internal Medicine
DX: G93.41 Metabolic encephalopathy (principal); E66.2 Morbid (severe) obesity with alveolar hypoventilation; Z68.41 Body mass index [BMI] 40.0-44.9, adult; H81.09 Meniere's disease, unspecified ear; I10 Essential (primary) hypertension; E11.9 Type 2 diabetes mellitus without complications; G43.909 Migraine, unspecified, not intractable, without status migrainosus; Z91.013 Allergy to seafood; Z88.8 Allergy status to other drugs, medicaments and biological substances; Z91.048 Other nonmedicinal substance allergy status; Z90.49 Acquired absence of other specified parts of digestive tract; Z83.3 Family history of diabetes mellitus; Z82.49 Family history of ischemic heart disease and other diseases of the circulatory system
CPT/HCPCS: 36415; 70450; 70496; 70498; 80053; 80320; 82550; 83735; 84100; 84443; 84484; 84702; 85025; 85610; 93005; G0378; J3490; G0480; J1170; J1200; J2765; J2930; J7030; J7040; Q9967

== ENCOUNTER 2022-03-22 11:01 | Emergency (ER) | payer OTHER, BC ==
[2022-03-22 11:11] VITALS: BP 134/70
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
[2022-03-22 13:17] LABS: HCG Qualitative,Urine Negative (Negative)
[2022-03-22] MEDS ORDERED: KETOROLAC 10 MG TAB PO ONE (15:17)
[2022-03-22] MEDS ORDERED: CYCLOBENZAPRINE 10 MG TAB PO ONE (15:17)
[2022-03-22] MEDS ORDERED: oxyCODONE /ACETAMINOPHEN 5-325MG TAB PO ONE (15:17)
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
== END 2022-03-22 15:45 | disposition home or self-care (01) ==
LOC: ED 11:01
DX: M54.2 Cervicalgia (principal); M25.511 Pain in right shoulder; E11.9 Type 2 diabetes mellitus without complications; G43.909 Migraine, unspecified, not intractable, without status migrainosus; Z90.49 Acquired absence of other specified parts of digestive tract; Z91.013 Allergy to seafood; Z88.8 Allergy status to other drugs, medicaments and biological substances; Z79.899 Other long term (current) drug therapy; V87.7XXA Person injured in collision between other specified motor vehicles (traffic), initial encounter; Y93.89 Activity, other specified; Y92.488 Other paved roadways as the place of occurrence of the external cause; Y99.8 Other external cause status
CPT/HCPCS: 72040; 81025; 99283